=== PATIENT | female | born 1990 | race African-American/Black ===

== ENCOUNTER 2019-06-27 16:27 | Emergency (ER) | payer OTHER ==
[2019-06-27 16:36] VITALS: TEMP 98.1; BMI 23.8
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
[2019-06-27 17:30] VITALS: BP 127/61; PULSE 72
== END 2019-06-27 17:40 | disposition home or self-care (01) ==
LOC: JER 16:27
DX: O26.892 Other specified pregnancy related conditions, second trimester (principal); Z04.1 Encounter for examination and observation following transport accident; V43.62XA Car passenger injured in collision with other type car in traffic accident, initial encounter; Y93.89 Activity, other specified; Y92.410 Unspecified street and highway as the place of occurrence of the external cause
CPT/HCPCS: 99281-25